=== PATIENT | female | born 2000 | race Caucasian/White ===

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

== ENCOUNTER 2022-11-17 11:13 | Emergency (ER) | payer MEDICAID, OTHER ==
[~2022-11-17] VITALS: Ht 162.6 cm; Wt 65.0 kg
[2022-11-17 11:26] VITALS: BP 115/78
[2022-11-17] MEDS ORDERED: IBUPROFEN 600MG TABLET PO ONE (12:00)
[2022-11-17] MEDS ORDERED: HYDROCODONE/ACETAMINOPHEN 5/325MG TABLET PO ONE (12:00)
[2022-11-17] MEDS ORDERED: IBUP-2028 MT (13:22)
[2022-11-17] MEDS ORDERED: HYDR-4001 MT (13:23)
== END 2022-11-17 14:45 | disposition home or self-care (01) ==
LOC: ER 11:16
DX: S72.401A Unspecified fracture of lower end of right femur, initial encounter for closed fracture (principal); W18.39XA Other fall on same level, initial encounter; Y93.89 Activity, other specified; Y92.89 Other specified places as the place of occurrence of the external cause; Y99.8 Other external cause status; Z79.899 Other long term (current) drug therapy
CPT/HCPCS: 29505; 73562; 81025; 99283

== ENCOUNTER 2024-06-30 07:41 | Emergency (ER) | payer MEDICAID ==
[~2024-06-30] VITALS: Ht 162.6 cm; Wt 68.0 kg
[~2024-06-30 07:41] MED LIST changes: +HYDR-4001 MT; +IBUP-2028 MT
[2024-06-30 08:04] VITALS: O2SAT 98
[2024-06-30 09:17] VITALS: BP 121/81; PULSE 84; RESP 16; TEMP 36.83628; O2SAT 98
== END 2024-06-30 09:18 | disposition home or self-care (01) ==
LOC: ER 07:49
DX: S61.305A Unspecified open wound of left ring finger with damage to nail, initial encounter (principal); Z98.890 Other specified postprocedural states; X58.XXXA Exposure to other specified factors, initial encounter; Y93.89 Activity, other specified; Y92.89 Other specified places as the place of occurrence of the external cause; Y99.8 Other external cause status
CPT/HCPCS: 99281; 99282